=== PATIENT | female | born 1930 | race Two or more races ===

== ENCOUNTER 2017-07-22 23:51 | Emergency (ER) | payer MEDICARE, MEDICAID ==
[~2017-07-22] VITALS: Ht 154.9 cm; Wt 90.0 kg
[~2017-07-22 23:51] MED LIST: ACET325T14 PO; ALEN70TA3 PO; ASPI-770 PO; AZIT250T PO; CARI250T9 PO; CARI350T PO; ESCI10TA10 PO; FEXO1TAB25 PO; FURO-93 PO; GABA-826 PO; GUAI200T3 PO; LEVO500T47 PO; LIDO700A5 TD; LORA10TA3 PO; LOSA25TA5 PO; LOSA50TA2 PO; LOVA10TA PO; LOVA20TA2 PO; MECL25TA4 PO; METH5TAB2 PO; METO25TA35 PO; OMEP-110 PO; POTA20TA91 PO; PRED20TA PO; SERT100T5 PO; TRAM-47 PO; TRAM50TA2 PO; ZOLP-413 PO
[2017-07-23] MEDS ORDERED: HYDROmorphone 1 MG/ML, 1ML ONE (00:57)
[2017-07-23] MEDS ORDERED: ONDANSETRON ODT 4 MG ONE (00:57)
[2017-07-23] MEDS ORDERED: KETOROLAC 30 MG/1 ML ONE (00:58)
[2017-07-23] MEDS ORDERED: ONDANSETRON ODT 4 MG PO ONE (01:00)
[2017-07-23] MEDS ORDERED: KETOROLAC 30 MG/1 ML IM ONE (01:00)
[2017-07-23] MEDS ORDERED: HYDROmorphone 1 MG/ML, 1ML IM ONE (01:00)
[2017-07-23 02:33] VITALS: BP 151/94
== END 2017-07-23 02:35 | disposition home or self-care (01) ==
LOC: ED 23:59
DX: J90 Pleural effusion, not elsewhere classified (principal); K44.9 Diaphragmatic hernia without obstruction or gangrene; E78.5 Hyperlipidemia, unspecified; F41.9 Anxiety disorder, unspecified; I10 Essential (primary) hypertension; J44.9 Chronic obstructive pulmonary disease, unspecified; Z90.710 Acquired absence of both cervix and uterus; Z99.81 Dependence on supplemental oxygen
CPT/HCPCS: 71010; 96372; 99284; J1170; J1885; Q0162

== ENCOUNTER 2018-04-25 12:01 | Observation (INO) | payer MEDICARE, MEDICAID ==
[~2018-04-25] VITALS: Ht 152.4 cm; Wt 69.0 kg
[~2018-04-25 12:01] MED LIST changes: -ASPI-770 PO; +ASPI81TA59 PO
[2018-04-25] MEDS ORDERED: METH-356 PO (12:12)
[2018-04-25] MEDS ORDERED: SODIUM CHLORIDE 0.9% 1,000ML IVBOLUS ONE (12:30)
[2018-04-25] MEDS ORDERED: SODIUM CHLORIDE FLUSH 10ML SYR IVF ONE (12:30)
[2018-04-25] MEDS ORDERED: MORPHINE SULFATE 4 MG/ML, 1ML IVPush PRN (12:30)
[2018-04-25 13:03] LABS: BASOPHILS % (AUTO) 0 % (0-1); EOSINOPHILS # (AUTO) 0.04 x10^3/uL (0-0.4); EOSINOPHILS % (AUTO) 0 % (1-7); LYMPHOCYTES # (AUTO) 0.67 x10^3/uL (1-3.4); LYMPHOCYTES % (AUTO) 7 % (22-44); MD NO; MEAN CORPUSCULAR HEMOGLOBIN 29.2 pg (27.0-34.8); MEAN CORPUSCULAR HGB CONC 32.3 g/dL (32.4-35.8); MEAN CORPUSCULAR VOLUME 90.5 fL (80-100); MEAN PLATELET VOLUME 9.2 fL (7.4-10.4); MONOCYTES % (AUTO) 6 % (2-9); NEUTROPHILS # (AUTO) 8.21 x10^3/uL (1.8-6.8); NEUTROPHILS % (AUTO) 86 % (42-75); PLATELET COUNT 157 x10^3/uL (130-400); RED BLOOD COUNT 3.81 x10^6/uL (3.82-5.3)
[2018-04-25 13:10] LABS: ALBUMIN 3.7 g/dL (3.4-5.0); CALCIUM 8.6 mg/dL (8.5-10.1)
[2018-04-25 13:15] LABS: ALANINE AMINOTRANSFERASE 33 U/L (12-78); ALKALINE PHOSPHATASE 93 U/L (45-117); ANION GAP 3 mmol/L (5-15); BILIRUBIN,TOTAL 1.1 mg/dL (0.2-1.0); CHLORIDE 97 mmol/L (98-107); CREATININE 0.98 mg/dL (0.55-1.02); TOTAL PROTEIN 7.3 g/dL (6.4-8.2)
[2018-04-25 13:44] LABS: MICROSCOPIC INDICATED
[2018-04-25 13:49] LABS: CULTURE INDICATED? YES
[2018-04-25] MEDS ORDERED: OMNIPAQUE 350 MG/ML, 100ML BOTTLE ONE (15:00)
[2018-04-25] MEDS ORDERED: morphine SULFATE 10 MG/ML, 1ML IVPush PRN (18:30)
[2018-04-25] MEDS ORDERED: ACETAMINOPHEN 325 MG TABLET PO PRN (18:30)
[2018-04-25] MEDS ORDERED: ONDANSETRON 2MG/ML, 2ML IVPush PRN (18:30)
[2018-04-25 18:56] VITALS: BP 129/72
[2018-04-25] MEDS ORDERED: LACTATED RINGERS 1,000 ML IV SCH (19:00)
[2018-04-25] MEDS: HEPARIN 5,000 UNITS/ML, 1ML SQ SCH (19:50)
[2018-04-25] MEDS: LACTATED RINGERS 1,000 ML IV SCH (19:51)
[2018-04-25] MEDS ORDERED: LOVASTATIN 20 MG TABLET PO SCH (21:00)
[2018-04-26 02:24] VITALS: BP 118/66
[2018-04-26] MEDS: HEPARIN 5,000 UNITS/ML, 1ML SQ SCH ×2 (04:25→12:00)
[2018-04-26 05:43] LABS: ANION GAP 6 mmol/L (5-15); CALCIUM 8.4 mg/dL (8.5-10.1); CHLORIDE 102 mmol/L (98-107)
[2018-04-26 05:44] LABS: CREATININE 0.88 mg/dL (0.55-1.02)
[2018-04-26 05:46] LABS: BASOPHILS # (AUTO) 0.02 x10^3/uL (0-0.1); BASOPHILS % (AUTO) 0 % (0-1); EOSINOPHILS # (AUTO) 0.01 x10^3/uL (0-0.4); EOSINOPHILS % (AUTO) 0 % (1-7); LYMPHOCYTES # (AUTO) 0.88 x10^3/uL (1-3.4); LYMPHOCYTES % (AUTO) 11 % (22-44); MD NO; MEAN CORPUSCULAR HEMOGLOBIN 30.5 pg (27.0-34.8); MEAN CORPUSCULAR HGB CONC 33.3 g/dL (32.4-35.8); MEAN CORPUSCULAR VOLUME 91.5 fL (80-100); MONOCYTES # (AUTO) 0.54 x10^3/uL (0.2-0.8); MONOCYTES % (AUTO) 7 % (2-9); NEUTROPHILS # (AUTO) 6.31 x10^3/uL (1.8-6.8); NEUTROPHILS % (AUTO) 81 % (42-75); PLATELET COUNT 124 x10^3/uL (130-400); RED BLOOD COUNT 3.33 x10^6/uL (3.82-5.3); RED CELL DISTRIBUTION WIDTH 14.8 % (9.6-15.2)
[2018-04-26] MEDS ORDERED: METOPROLOL TARTRATE 25 MG TABLET PO SCH (06:00)
[2018-04-26] MEDS: METHADONE 10 MG TABLET PO SCH ×2 (06:06→08:39)
[2018-04-26] MEDS: LACTATED RINGERS 1,000 ML IV SCH (07:03)
[2018-04-26 07:14] VITALS: BP 118/70
[2018-04-26] MEDS ORDERED: SERTRALINE 100MG TABLET PO SCH (09:00)
[2018-04-26] MEDS ORDERED: LOSARTAN 50MG TABLET PO SCH (09:00)
[2018-04-26] MEDS ORDERED: ONDA4TAB10 PO (13:07)
== END 2018-04-26 15:34 | disposition home or self-care (01) ==
LOC: ED 13:59 → EDIP 17:05 → INTOOBSV 17:05 → 3NE 18:42
PROVIDERS: ADMIT Family Medicine; ATTEND Family Medicine
DX: K52.9 Noninfective gastroenteritis and colitis, unspecified (principal); D64.9 Anemia, unspecified; E78.5 Hyperlipidemia, unspecified; E86.0 Dehydration; I11.0 Hypertensive heart disease with heart failure; I50.32 Chronic diastolic (congestive) heart failure; J44.9 Chronic obstructive pulmonary disease, unspecified; J96.10 Chronic respiratory failure, unspecified whether with hypoxia or hypercapnia; K21.9 Gastro-esophageal reflux disease without esophagitis; K57.90 Diverticulosis of intestine, part unspecified, without perforation or abscess without bleeding
CPT/HCPCS: 36415; 74177; 80048; 80053; 81001; 83605; 83690; 85025; 87086; 87147; 93005; 96360; 96361; 96372; 99285; G0378; J1644; J7030; J7120; Q9967